=== PATIENT | female | born 1960 | race Caucasian/White ===

== ENCOUNTER → 2021-09-02 | Outpatient (CLI) | payer BC ==
[2021-09-02 18:19] LABS: CLARITY,URINE HAZY
[2021-09-02 18:20] LABS: BACTERIA,URINE MANY /HPF (0-FEW); COLOR,URINE ORANGE; WBC,URINE >40 /HPF (0-4)
[2021-09-02 18:21] LABS: SQUAMOUS EPITHELIAL CELL,UR OCC /LPF
== END ==
LOC: LAB 16:58
PROVIDERS: ATTEND Family Medicine
DX: R30.0 Dysuria (principal)
CPT/HCPCS: 81001